=== PATIENT | female | born 1980 | race American Indian/Alaskan Native ===

== ENCOUNTER 2022-01-18 08:22 | Emergency (ER) | payer MEDICAID ==
[2022-01-18] MEDS ORDERED: SODIUM CHLORIDE 0.9% 1000 ML 1,000 ML IV ONE (10:41)
[2022-01-18] MEDS ORDERED: METOCLOPRAMIDE 10 MG/2 ML INJ IV ONE (10:42)
[2022-01-18] MEDS ORDERED: MORPHINE 4 MG/1 ML INJ IV ONE (10:42)
[2022-01-18] MEDS ORDERED: diphenhydrAMINE 50 MG/ML VIAL IV ONE (10:42)
[2022-01-18] MEDS ORDERED: ALPRAZolam 1 MG TAB PO ONE (10:42)
[2022-01-18] MEDS ORDERED: MORPHINE 4 MG/1 ML INJ IM ONE ×2 (13:07→15:32)
[2022-01-18] MEDS ORDERED: diphenhydrAMINE 25 MG CAP PO ONE (13:08)
[2022-01-18] MEDS ORDERED: METOCLOPRAMIDE 10 MG TAB PO ONE (13:08)
[2022-01-18] MEDS ORDERED: ONDANSETRON 4 MG ODT TAB PO ONE (13:08)
[2022-01-18] MEDS ORDERED: PROCHLORPERAZINE EDISYLATE 10 MG/2 ML VIAL IM ONE (15:31)
--- NOTE | 2022-01-18 17:25 | Emergency Department Report ---
ED Abdominal Pain HPI - General Chief Complaint: Abdominal Pain Stated Complaint: ABD PAIN Time Seen by Provider: 01/18/22 10:19 Source: patient, EMS Mode of arrival: Stretcher Limitations: No Limitations - History of Present Illness Initial Comments: 41-year-old black female with a past medical history of cyclic vomiting syndrome presents to the emergency department for evaluation of 1 day history of nausea vomiting. She states that she took Phenergan and Zofran at home without improvement. She states that she has not been able to keep anything down since yesterday and is having abdominal pain and cramping. She denies fever, diarrhea, dysuria, and vaginal discharge. MD Complaint: abdominal pain -: days(s) (1) Location: diffuse Radiation: none Migration to: no migration Severity scale (0 -10): 10 Quality: cramping, aching Consistency: constant Associated Symptoms: nausea, vomiting. denies: diarrhea, fever, chills, dysuria, hematemesis, hematochezia, melena, hematuria, anorexia, syncope Treatments Prior to Arrival: other (Phenergan tablets) - Related Data Previous Rx's Medication Instructions Recorded Last Taken Type Ondansetron [Zofran Odt] 4 mg PO Q8HR PRN #12 tab.rapdis 01/18/22 Unknown Rx Prochlorperazine 25 mg RC TID PRN #12 supp 01/18/22 Unknown Rx Allergies Allergy/AdvReac Type Severity Reaction Status Date / Time No Known Allergies Allergy Verified 01/18/22 11:00 ED Review of Systems ROS: Stated complaint: ABD PAIN Other details as noted in HPI Comment: All other systems reviewed and negative Constitutional: denies: chills, fever, malaise, weakness Eyes: denies: eye pain, eye discharge, vision change ENT: denies: congestion Respiratory: denies: cough, shortness of breath, SOB with exertion, SOB at rest, stridor, wheezing Cardiovascular: denies: chest pain, palpitations, dyspnea on exertion, orthopnea, edema, syncope, paroxysmal nocturnal dyspnea Gastrointestinal: abdominal pain, nausea, vomiting. denies: diarrhea, hematemesis, melena, hematochezia Genitourinary: denies: urgency, dysuria, frequency, hematuria, discharge Musculoskeletal: denies: back pain, joint swelling, arthralgia, myalgia Skin: denies: rash, lesions Neurological: denies: headache, weakness, numbness, paresthesias, confusion, abnormal gait Psychiatric: denies: anxiety Hematological/Lymphatic: denies: easy bleeding, easy bruising ED Past Medical Hx - Social History Smoking Status: Never Smoker Substance Use Type: None - Medications Home Medications: Home Medications Medication Instructions Recorded Confirmed Last Taken Type Ondansetron [Zofran Odt] 4 mg PO Q8HR PRN #12 tab.rapdis 01/18/22 Unknown Rx Prochlorperazine 25 mg RC TID PRN #12 supp 01/18/22 Unknown Rx ED Physical Exam - General Limitations: No Limitations General appearance: alert, in no apparent distress - Head Head exam: Present: atraumatic, normocephalic - Eye Eye exam: Present: normal appearance. Absent: conjunctival injection - Neck Neck exam: Present: normal inspection, full ROM. Absent: tenderness, meningismus, lymphadenopathy, thyromegaly - Respiratory Respiratory exam: Present: normal lung sounds bilaterally. Absent: respiratory distress, wheezes, rales, rhonchi, stridor, chest wall tenderness - Cardiovascular Cardiovascular Exam: Present: regular rate, normal heart sounds - GI/Abdominal GI/Abdominal exam: Present: soft (Epigastric area only), tenderness (Epigastric area), normal bowel sounds. Absent: distended, guarding, rebound, rigid - Extremities Exam Extremities exam: Present: normal inspection, normal capillary refill. Absent: pedal edema, joint swelling, calf tenderness - Back Exam Back exam: Present: normal inspection, full ROM. Absent: CVA tenderness (R), CVA tenderness (L), vertebral tenderness - Neurological Exam Neurological exam: Present: alert, oriented X3, normal gait - Psychiatric Psychiatric exam: Present: normal affect, normal mood - Skin Skin exam: Present: warm, dry, intact, normal color ED Course Vital Signs 01/18/22 01/18/22 01/18/22 08:23 12:33 17:39 Temperature 98.5 F 97.6 F Pulse Rate 86 86 79 Respiratory 18 18 Rate Blood Pressure 131/86 132/84 125/81 [Left] O2 Sat by Pulse 98 99 100 Oximetry - Reevaluation(s) Reevaluation #1: 01/18/22 17:23 Unable to obtain IV access after several attempts by several people. Patient did receive IM antiemetics and she now states that nausea vomiting and abdominal pain has mostly resolved. Patient was given p.o. challenge and was able to keep down a cup of water. Patient now ambulating and up in the restroom getting urine sample. No acute distress noted. ED Medical Decision Making - Medical Decision Making 41-year-old black female with a past medical history of cyclic vomiting syndrome presents to the emergency department for evaluation of 1 day history of nausea vomiting. She states that she took Phenergan and Zofran at home without improvement. She states that she has not been able to keep anything down since yesterday and is having abdominal pain and cramping. She denies fever, diarrhea, dysuria, and vaginal discharge. Unable to get IV access but patient was treated with IM Reglan, Benadryl, and Compazine. Nausea vomiting was relieved and patient was able to drink 2 cups of water a and successfully keep them down without vomiting. Pain was treated with IM morphine. Patient states that she does feel some better. She will be discharged home with Phenergan suppositories and Zofran tabs to use as needed for nausea and vomiting. She is advised to follow-up with her snuff grinder and screener for further evaluation and management. She is advised to return to the emergency department as needed for any concerning symptoms. She verbalized understanding of and agreement with plan of care. Critical care attestation.: If time is entered above; I have spent that time in minutes in the direct care of this critically ill patient, excluding procedure time. ED Disposition Clinical Impression: Nausea and vomiting Qualifiers: Vomiting type: unspecified Qualified Code(s): R11.2 - Nausea with vomiting, unspecified Disposition: 01 HOME / SELF CARE / HOMELESS Is pt being admited?: No Does the pt Need Aspirin: No Condition: Stable Instructions: Nausea and Vomiting, Adult, [id number], Abdominal Pain (ED) Additional Instructions: Take medications as prescribed. Follow-up with primary care provider or snuff grinder and screener for further evaluation and management. Return to the emergency department as needed. Prescriptions: Prochlorperazine 25 mg RC TID PRN #12 supp PRN Reason: Nausea And Vomiting Ondansetron [Zofran Odt] 4 mg PO Q8HR PRN #12 tab.rapdis PRN Reason: Nausea And Vomiting Referrals: BERNY HUSTON MD [Staff Physician] - 3-5 Days GATITO DESOUZA MD [Staff Physician] - 3-5 Days Time of Disposition: 18:24
[2022-01-18 17:40] VITALS: BP 125/81
[2022-01-18 18:00] LABS: Bilirubin,Urine NEG (Negative); Blood,Urine MOD (Negative); Color,Urine Yellow (Yellow); Mucus,Urine 3+ /HPF; Urobilinogen,Urine < 2.0 mg/dL (<2.0)
== END 2022-01-18 18:44 | disposition home or self-care (01) ==
LOC: ED 08:22
DX: R11.2 Nausea with vomiting, unspecified (principal)
CPT/HCPCS: 81001; 96372; 99284; J0780; J1200; J2270; J2765; J7030; J3490; Q0162